=== PATIENT | female | born 1990 | race Caucasian/White ===

== ENCOUNTER 2017-06-26 11:37 | Emergency (ER) | payer OTHER ==
--- NOTE | 2017-06-26 12:16 | ED Physician Documentation ---
PD HPI HEENT - Stated complaint Stated Complaint: JAW PAIN - Chief complaint Chief Complaint: Heent - History obtained from History obtained from: Patient - History of Present Illness Timing - onset: Today Timing - duration: Days (1) Timing - details: Abrupt onset, Still present (pain left lower gum, jaw and side of face. Some redness of lower left gum. no prior similar. no histoyr of cold sores. 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 No: Fever, Swollen nodes, Cough Similar symptoms before: Has not had sx before Recently seen: Not recently seen Review of Systems Constitutional: denies: Fever, Chills Ears: denies: Loss of hearing, Ear pain Nose: reports: Congestion Throat: reports: Dental pain / toothache, Oral lesions / sores (redness and some white blisters on gumline). denies: Sore throat Respiratory: denies: Dyspnea, Cough PD PAST MEDICAL HISTORY - Past Medical History Past Medical History: No Respiratory: None Endocrine/Autoimmune: None - Past Surgical History Past Surgical History: Yes General: Cholecystectomy - Present Medications Home Medications: Ambulatory Orders Medication Instructions Recorded Confirmed Chlorhexidine Gluconate [Peridex] 5 ml MM BID #118 ml 06/26/17 Clindamycin HCl [Cleocin HCl] 300 mg PO TID #20 capsule 06/26/17 Ibuprofen [Motrin] 600 mg PO TID #30 tab 06/26/17 - Allergies Allergies/Adverse Reactions: Allergies Allergy/AdvReac Type Severity Reaction Status Date / Time Latex, Natural Rubber AdvReac skin Verified 06/26/17 11:49 irritation cold medication Allergy unknown Uncoded 06/26/17 11:49 topical anesthesia Allergy unknown Uncoded 06/26/17 11:49 - Social History Does the pt smoke?: Yes Smoking Status: Current every day smoker Does the pt drink ETOH?: No Does the pt have substance abuse?: No - Immunizations Immunizations are current?: Yes PD ED PE NORMAL - Vitals Vital signs reviewed: Yes - General General: Alert and oriented X 3, No acute distress, Well developed/nourished - HEENT HEENT: Ears normal, Moist mucous membranes, Dentition benign, Other (left lower gum with redness and tenderness and some white superficial blisters, no ulceration. No sores on lips/antwon border. ) - Neck Neck: Supple, no meningeal sign, No adenopathy - Cardiac Cardiac: No murmur - Respiratory Respiratory: Clear bilaterally Results - Vitals Vitals: Vital Signs - 24 hr 06/26/17 11:45 Temperature 36.4 C L Heart Rate 69 Respiratory 18 Rate Blood Pressure 109/73 O2 Saturation 100 Oxygen O2 Source Room air Departure - Departure Disposition: Home, Self Care Clinical Impression: Gingivitis Condition: Stable Record reviewed to determine appropriate education?: Yes Instructions: Gingivitis Follow-Up: [facility] [Provider Group] Prescriptions: Chlorhexidine Gluconate [Peridex] 5 ml MM BID #118 ml Clindamycin HCl [Cleocin HCl] 300 mg PO TID #20 capsule Ibuprofen [Motrin] 600 mg PO TID #30 tab Comments: Use antiseptic mouth rinse through that area 3 or 4 times a day for the next several days. Ibuprofen 3 times a day for inflammation. Add Tylenol if needed for pain. It looks like a gum infection locally and so we will treated with clindamycin antibiotic. Recheck if it is all not improved over the next few days.
[2017-06-26] MEDS ORDERED: IBUPROFEN 600 MG TABLET PO STA (12:34)
[2017-06-26] MEDS ORDERED: CLINDAMYCIN 150 MG CAPSULE PO STA (12:35)
[2017-06-26] MEDS ORDERED: CLINDAMYCIN 150 MG CAPSULE PO ONE (12:44)
[2017-06-26] MEDS ORDERED: IBUPROFEN 600 MG TABLET PO ONE (12:44)
[2017-06-26 12:45] VITALS: BP 112/75
== END 2017-06-26 12:45 | disposition home or self-care (01) ==
LOC: ED 11:37
DX: K05.10 Chronic gingivitis, plaque induced (principal); F17.200 Nicotine dependence, unspecified, uncomplicated
CPT/HCPCS: 99283; A9270

== ENCOUNTER 2018-03-25 01:20 | Emergency (ER) | payer OTHER ==
[2018-03-25 02:01] LABS: BASOPHILS # (AUTO) 0.1 10^3/uL (0.0-0.1); BASOPHILS % (AUTO) 0.7 %; EOSINOPHILS # (AUTO) 0.2 10^3/uL (0.0-0.7); EOSINOPHILS % (AUTO) 1.4 %; LYMPHOCYTES # (AUTO) 2.3 10^3/uL (1.5-3.5); LYMPHOCYTES % (AUTO) 19.9 %; MEAN CORPUSCULAR HEMOGLOBIN 29.4 pg (27.0-31.0); MEAN CORPUSCULAR HGB CONC 34.8 g/dL (32.0-36.0); MEAN CORPUSCULAR VOLUME 84.5 fL (81.0-99.0); MEAN PLATELET VOLUME 8.2 fL (7.9-10.8); MONOCYTES % (AUTO) 8.3 %; NEUTROPHILS # (AUTO) 8.1 10^3/uL (1.5-6.6); NEUTROPHILS % (AUTO) 69.7 %; PLT - PLATELET COUNT 330 10^3/uL (130-450); RED CELL DISTRIBUTION WIDTH 13.3 % (12.0-15.0); WHITE BLOOD COUNT 11.7 x10^3/uL (4.8-10.8)
--- NOTE | 2018-03-25 02:02 | ED Physician Documentation ---
PD HPI ABD PAIN - Stated complaint Stated Complaint: ABDOMINAL PAIN - Chief complaint Chief Complaint: Abd Pain - History obtained from History obtained from: Patient - History of Present Illness Timing - onset: Enter time (10:00), Yesterday Timing - details: Gradual onset Pain level now: 6 Quality: Pain Location: RUQ, Epigastric Radiation: Other (no radiation) Improved by: Position (sitting up) Worsened by: Position (lying supine) Associated symptoms: Nausea, Vomiting. No: Fever Similar symptoms before: Has not had sx before Recently seen: Not recently seen Review of Systems Constitutional: reports: Reviewed and negative Cardiac: reports: Reviewed and negative Respiratory: reports: Reviewed and negative GI: reports: Abdominal Pain, Nausea, Vomiting. denies: Abdominal Swelling, Constipation, Diarrhea : denies: Dysuria, Frequency, Now EGA Musculoskeletal: denies: Back pain PD PAST MEDICAL HISTORY - Past Medical History Respiratory: None Endocrine/Autoimmune: None - Past Surgical History Past Surgical History: Yes General: Cholecystectomy - Present Medications Home Medications: Ambulatory Orders Medication Instructions Recorded Confirmed Chlorhexidine Gluconate [Peridex] 5 ml MM BID #118 ml 06/26/17 Clindamycin HCl [Cleocin HCl] 300 mg PO TID #20 capsule 06/26/17 Ibuprofen [Motrin] 600 mg PO TID #30 tab 06/26/17 Ondansetron Odt [Zofran] 4 mg TL Q6H PRN #14 tablet 03/25/18 oxyCODONE [Roxicodone] 5 mg PO Q6H PRN #14 tablet 03/25/18 - Allergies Allergies/Adverse Reactions: Allergies Allergy/AdvReac Type Severity Reaction Status Date / Time Latex, Natural Rubber AdvReac skin Verified 03/25/18 01:33 irritation cold medication Allergy unknown Uncoded 03/25/18 01:33 topical anesthesia Allergy unknown Uncoded 03/25/18 01:33 - Social History Does the pt smoke?: No Smoking Status: Former smoker Does the pt drink ETOH?: No Does the pt have substance abuse?: No - Immunizations Immunizations are current?: Yes PD ED PE NORMAL - Vitals Vital signs reviewed: Yes - General General: Alert and oriented X 3, Well developed/nourished, Other (mostly NAD, but intermittently appears to be in mild painful discomfort) - Cardiac Cardiac: RRR, No murmur - Respiratory Respiratory: No respiratory distress, Clear bilaterally - Abdomen Abdomen: Normal bowel sounds, Soft, Non distended, Other (mild RUQ and moderate epigastric tenderness without rebound or guarding) - Back Back: No CVA TTP - Derm Derm: Normal color, Warm and dry, No rash - Extremities Extremities: No edema Results - Vitals Vitals: Vital Signs - 24 hr 03/25/18 03/25/18 03/25/18 01:30 03:48 06:11 Temperature 36.2 C L Heart Rate 88 76 71 Respiratory 18 17 15 Rate Blood Pressure 106/68 115/64 109/67 O2 Saturation 96 100 100 Oxygen O2 Source Room air - Labs Labs: Laboratory Tests 03/25/18 03/25/18 03/25/18 01:40 01:40 01:52 WBC 11.7 H RBC 5.10 Hgb 15.0 Hct 43.1 MCV 84.5 MCH 29.4 MCHC 34.8 RDW 13.3 Plt Count 330 MPV 8.2 Neut # (Auto) 8.1 H Lymph # (Auto) 2.3 Lyon # (Auto) 1.0 Eos # (Auto) 0.2 Baso # (Auto) 0.1 Absolute Nucleated RBC 0.01 Nucleated RBC % 0.0 Sodium Potassium Chloride Carbon Dioxide Anion Gap BUN Creatinine Estimated GFR (MDRD) Glucose Calcium Total Bilirubin AST ALT Alkaline Phosphatase Total Protein Albumin Globulin Albumin/Globulin Ratio Lipase Urine Color YELLOW Urine Clarity CLEAR Urine pH 6.0 Ur Specific [place] >=1.030 H >=1.030 H Urine Protein NEGATIVE Urine Glucose (UA) NEGATIVE Urine Ketones NEGATIVE Urine Occult Blood NEGATIVE Urine Nitrite NEGATIVE Urine Bilirubin NEGATIVE Urine Urobilinogen 0.2 (NORMAL) Ur Leukocyte Esterase NEGATIVE Ur Microscopic Review NOT INDICATED Urine Culture Comments NOT INDICATED Urine HCG, Qual NEGATIVE 03/25/18 01:52 WBC RBC Hgb Hct MCV MCH MCHC RDW Plt Count MPV Neut # (Auto) Lymph # (Auto) Lyon # (Auto) Eos # (Auto) Baso # (Auto) Absolute Nucleated RBC Nucleated RBC % Sodium 139 Potassium 4.0 Chloride 106 Carbon Dioxide 25 Anion Gap 8.0 BUN 13 Creatinine 0.9 Estimated GFR (MDRD) 75 L Glucose 117 H Calcium 9.2 Total Bilirubin 0.7 AST 18 ALT 16 Alkaline Phosphatase 91 Total Protein 8.0 Albumin 4.3 Globulin 3.7 Albumin/Globulin Ratio 1.2 Lipase 27 Urine Color Urine Clarity Urine pH Ur Specific [place] Urine Protein Urine Glucose (UA) Urine Ketones Urine Occult Blood Urine Nitrite Urine Bilirubin Urine Urobilinogen Ur Leukocyte Esterase Ur Microscopic Review Urine Culture Comments Urine HCG, Qual - Rads (name of study) CT A/P Radiology: Prelim report reviewed, See rad report PD MEDICAL DECISION MAKING - ED course Complexity details: reviewed results, re-evaluated patient, considered differential, d/w patient - Sepsis Event Vital Signs: Vital Signs - 24 hr 03/25/18 03/25/18 03/25/18 01:30 03:48 06:11 Temperature 36.2 C L Heart Rate 88 76 71 Respiratory 18 17 15 Rate Blood Pressure 106/68 115/64 109/67 O2 Saturation 96 100 100 Oxygen O2 Source Room air Departure - Departure Disposition: 01 Home, Self Care Clinical Impression: Abdominal pain Condition: Good Instructions: ED Abdominal Pain Unkn Cause Follow-Up: [facility] [Provider Group] Prescriptions: Ondansetron Odt [Zofran] 4 mg TL Q6H PRN #14 tablet PRN Reason: Nausea / Vomiting oxyCODONE [Roxicodone] 5 mg PO Q6H PRN #14 tablet PRN Reason: Pain Discharge Date/Time: 03/25/18 06:12
[2018-03-25 02:04] LABS: BILIRUBIN,URINE NEGATIVE (NEGATIVE); GLUCOSE, URINE (UA) NEGATIVE (NEGATIVE); KETONES,URINE (UA) NEGATIVE (NEGATIVE); LEUKOCYTE ESTERASE, URINE NEGATIVE (NEGATIVE); NITRITE,URINE NEGATIVE (NEGATIVE); OCCULT BLOOD,URINE NEGATIVE (NEGATIVE); PROTEIN,URINE NEGATIVE (NEGATIVE); UROBILINOGEN,URINE 0.2 (NORMAL) E.U./dL (NORMAL)
[2018-03-25 02:06] LABS: CLARITY,URINE CLEAR (CLEAR)
[2018-03-25 02:07] LABS: HCG UR QUAL NEGATIVE
[2018-03-25 02:12] LABS: ALBUMIN 4.3 g/dL (3.2-5.5); ALBUMIN/GLOBULIN RATIO 1.2 (1.0-2.2); BILIRUBIN,TOTAL 0.7 mg/dL (0.2-1.0); CALCIUM 9.2 mg/dL (8.5-10.3); CREATININE 0.9 mg/dL (0.4-1.0)
[2018-03-25] MEDS ORDERED: SODIUM CHLORIDE 0.9% 1,000 ML IV STA (02:30)
[2018-03-25] MEDS ORDERED: ONDANSETRON 4 MG/2 ML VIAL IVP STA ×2 (02:30→04:19)
[2018-03-25] MEDS ORDERED: KETOROLAC 60 MG/2 ML VIAL IVP STA (02:30)
[2018-03-25] MEDS ORDERED: MORPHINE 10 MG/ML VIAL IVP STA (04:18)
[2018-03-25] MEDS ORDERED: MORPHINE 2 MG/ML CARPUJECT IVP STA (04:24)
[2018-03-25] MEDS ORDERED: IOPAMIDOL-300 100 ML VIAL ONE (04:25)
[2018-03-25] MEDS ORDERED: IOPAMIDOL-300 100 ML VIAL IVP ONE (04:43)
--- NOTE | 2018-03-25 05:03 | CT Report ---
Reason: abdominal pain (epigastric and right sided) Procedure Date: 03/25/2018 Accession Number: [id number] / [id number] Procedure: CT - Abdomen/Pelvis W/ CPT Code: FULL RESULT: EXAM: CT ABDOMEN AND PELVIS EXAM DATE: 03/25/2018 04:54 AM. CLINICAL HISTORY: Abdominal pain (epigastric and right sided). COMPARISONS: None. TECHNIQUE: Routine helical CT imaging was performed through the abdomen and pelvis. IV contrast: ISOVUE 300 100mL. Enteric contrast: No. Reconstructions: Coronal and sagittal. In accordance with CT protocol optimization, one or more of the following dose reduction techniques were utilized for this exam: automated exposure control, adjustment of mA and/or KV based on patient size, or use of iterative reconstructive technique. FINDINGS: Lung Bases: Unremarkable. Liver: Possible fatty infiltration. Gallbladder/Bile Ducts: Status post cholecystectomy. Spleen: Normal. Pancreas: Normal. Adrenal Glands: Normal. Kidneys: Normal. No masses or hydronephrosis. Peritoneal Cavity/Bowel: No bowel obstruction seen. No diverticulitis. No free air or free fluid. Moderate stool in the right hemicolon. No lymphadenopathy. Appendix appears normal. Pelvic Organs: IUD in the lower uterine segment. Left ovarian cyst measuring 2.3 cm. Vasculature: No aneurysms or other significant abnormality. Bones: No significant abnormality. Other: None. IMPRESSION: 1. Appendix appears normal. 2. [place] fatty liver. 3. Moderate stool in the right hemicolon. 4. Left ovarian cyst measuring 2.3 cm. 5. IUD in the lower uterine segment. RADIA
[2018-03-25] MEDS ORDERED: oxyCODONE 5 MG TABLET PO STA (06:03)
[2018-03-25 06:12] VITALS: BP 109/67
== END 2018-03-25 06:12 | disposition home or self-care (01) ==
LOC: ED 01:20
DX: R10.13 Epigastric pain (principal); R10.11 Right upper quadrant pain; Z87.891 Personal history of nicotine dependence
CPT/HCPCS: 36415; 74177; 80053; 81003; 81025; 83690; 85025; 96361; 96374; 96375; 96376; 99283; A9270; Q9967; 81001; 87086

== ENCOUNTER 2018-05-08 14:31 | Emergency (ER) | payer OTHER ==
[2018-05-08 14:42] VITALS: BP 112/66
[2018-05-08] MEDS ORDERED: BUFFERED LIDOCAINE 10 ML SYRINGE SUBQ STA (14:47)
[2018-05-08] MEDS ORDERED: TETANUS/DIPHTHERIA/PERTUSSIS 0.5 ML SYRINGE IM ONE (15:32)
--- NOTE | 2018-05-08 15:35 | ED Physician Documentation ---
PD HPI UPPER EXT INJURY - Stated complaint Stated Complaint: RT HAND LAC - Chief complaint Chief Complaint: Laceration - History obtained from History obtained from: Patient, Family - History of Present Illness Location: Right, Hand Type of injury: Laceration Where injury occurred: Work Timing - onset: Today Timing - duration: Minutes Timing - details: Abrupt onset, Still present Improved by: Rest, Immobilization Worsened by: Moving, Palpating Associated symptoms: No: Weakness, Numbness, Tingling, Swelling Contributing factors: No: Anticoagulated Similar symptoms before: Diagnosis (laceration) Recently seen: Not recently seen - Additonal information Additional information: Previously well 27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 She is not up-to-date on her tetanus she has been able to control the bleeding with direct pressure. Review of Systems Constitutional: denies: Fever, Chills Eyes: denies: Decreased vision Respiratory: denies: Cough GI: denies: Vomiting Skin: reports: Laceration (s). denies: Rash Musculoskeletal: reports: Extremity pain. denies: Neck pain, Back pain Neurologic: denies: Generalized weakness, Focal weakness, Numbness PD PAST MEDICAL HISTORY - Past Medical History Past Medical History: No Respiratory: None Endocrine/Autoimmune: None - Past Surgical History Past Surgical History: Yes General: Cholecystectomy - Present Medications Home Medications: Ambulatory Orders Medication Instructions Recorded Confirmed Omeprazole 20 mg PO 05/08/18 - Allergies Allergies/Adverse Reactions: Allergies Allergy/AdvReac Type Severity Reaction Status Date / Time Latex, Natural Rubber AdvReac skin Verified 05/08/18 14:38 irritation cold medication Allergy unknown Uncoded 05/08/18 14:38 topical anesthesia Allergy unknown Uncoded 05/08/18 14:38 - Social History Does the pt smoke?: No Smoking Status: Never smoker Does the pt drink ETOH?: No Does the pt have substance abuse?: No - Immunizations Immunizations are current?: Yes PD ED PE NORMAL - Vitals Vital signs reviewed: Yes (normal ) - General General: Alert and oriented X 3, No acute distress, Well developed/nourished - HEENT HEENT: Atraumatic, PERRL - Respiratory Respiratory: No respiratory distress - Derm Derm: Normal color, Warm and dry, No rash - Extremities Extremities: No deformity, No edema, Other (There is a 3cm laceration over the web space between the 1st and 2nd digits on the right hand. The wound is deep but does not involve deeper structures. The distal n/v is intact. 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, No motor deficit, No sensory deficit, Normal speech Eye Opening: Spontaneous Motor: Obeys Commands Verbal: Oriented GCS Score: 15 - Psych Psych: Normal mood, Normal affect Results - Vitals Vitals: Vital Signs - 24 hr 05/08/18 14:36 Temperature 36.4 C L Heart Rate 85 Respiratory 18 Rate Blood Pressure 112/66 O2 Saturation 98 Oxygen O2 Source Room air Procedures - Laceration (location) right hand Length in cm: 3 Wound type: Linear, Irregular, Clean Neurovascular status: Sensory intact, Motor intact, Vascular intact Anesthesia: Lidocaine 1%, With bicarb Wound Preparation: Hibiclens, Irrigated copiously NS, Wound explored, To the base Skin layer closure: Nylon, Interrupted, Size #-0 - enter number (4-0) Other: Patient tolerated well, No complications, Neurovascular intact, Dressing applied, Tetanus booster given Complexity: Simple PD MEDICAL DECISION MAKING - ED course Complexity details: considered differential, d/w patient, d/w family ED course: 27-year-old female with a 3 cm right hand laceration is sutured tolerates this well. Departure - Departure Disposition: 01 Home, Self Care Clinical Impression: Hand laceration Qualifiers: Encounter type: initial encounter Foreign body presence: without foreign body Laterality: right Qualified Code(s): S61.411A - Laceration without foreign body of right hand, initial encounter Condition: Stable Instructions: ED Laceration Hand Follow-Up: [facility] [Provider Group] Comments: sutures will need to be removed in 10 days. Forms: Activity restrictions
[2018-05-08] MEDS ORDERED: BACITRACIN OINT TOP ONE (15:39)
== END 2018-05-08 15:55 | disposition home or self-care (01) ==
LOC: ED 14:31
DX: S61.411A Laceration without foreign body of right hand, initial encounter (principal); W25.XXXA Contact with sharp glass, initial encounter; Y93.G1 Activity, food preparation and clean up; Y92.009 Unspecified place in unspecified non-institutional (private) residence as the place of occurrence of the external cause; Y99.0 Civilian activity done for income or pay; Z23 Encounter for immunization
CPT/HCPCS: 1040M; 12002; 90471; 90715; 99282; 99283; A9270

== ENCOUNTER 2024-04-05 19:08 | Emergency (ER) | payer OTHER ==
--- NOTE | 2024-04-05 19:37 | ED Physician Documentation ---
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 No other injuries.) PD PAST MEDICAL HISTORY - Past Medical History Respiratory: None Endocrine/Autoimmune: None - Past Surgical History Past Surgical History: Yes General: Cholecystectomy - Present Medications Home Medications: Ambulatory Orders Medication Instructions Recorded Confirmed Omeprazole 20 mg PO 05/08/18 - Allergies Allergies/Adverse Reactions: Allergies Allergy/AdvReac Type Severity Reaction Status Date / Time Latex, Natural Rubber AdvReac skin Verified 04/05/24 19:57 irritation cold medication Allergy unknown Uncoded 04/05/24 19:57 topical anesthesia Allergy unknown Uncoded 04/05/24 19:57 - Social History Does the pt smoke?: No Smoking Status: Never smoker Does the pt drink ETOH?: No Does the pt have substance abuse?: No - Immunizations Immunizations are current?: Yes PD ED PE NORMAL - Vitals Vital signs reviewed: Yes - General General: Alert and oriented X 3, No acute distress - Extremities Extremities: Other (Very tender to the fifth metacarpal of the left hand. Normal neurovascular function at the tips of all digits.) - Neuro Neuro: Alert and oriented X 3, Normal speech Results - Vitals Vitals: Vital Signs - 24 hr 04/05/24 04/05/24 19:34 22:09 Temperature 36.3 C L 36.4 C L Heart Rate 113 H 97 Respiratory 18 18 Rate Blood Pressure 129/89 H 123/80 O2 Saturation 99 98 Oxygen O2 Source Room air - Rads (name of study) Three-view x-ray left hand negative Relevant Findings:: Final report received, EMP independent interpretation of test PD Medical Decision Making - ED course ED course: She is negative radiography but in a lot of pain. I checked the ligaments on both sides of the MCP of the fifth digit and they seemed intact. That said she was encouraged to follow-up with hand surgery if not improved in a week. Departure - Departure Disposition: 01 Home, Self Care Clinical Impression: Sprain of left little finger Qualifiers: Encounter type: initial encounter Sprain of finger site: metacarpophalangeal joint Qualified Code(s): S63.657A - Sprain of metacarpophalangeal joint of left little finger, initial encounter Condition: Good Record reviewed to determine appropriate education?: Yes Instructions: ED Sprain Finger Comments: If not improved over the next week or so. You should follow-up with a hand surgeon. [address] Colin Fan at [facility], the phone number is [phone]. You may need a referral from your primary care physician if you do need to follow-up with him so you should bring them into the loop 2. Ibuprofen as needed for pain and you can ice it as well. Return for new or worsening symptoms. Forms: PCP List, Activity restrictions Discharge Date/Time: 04/05/24 22:14
[2024-04-05] MEDS: HYDROcod/ACETAM 5/325 MG TABLET PO STA ×2 (20:41→22:06)
[2024-04-05] MEDS: IBUPROFEN 800 MG TABLET PO STA (20:41)
--- NOTE | 2024-04-05 22:14 | XRAY Report ---
PROCEDURE: Hand 3+V LT INDICATIONS: hand inj TECHNIQUE: 3 views of the hand(s) acquired. COMPARISON: None. FINDINGS: Bones: No fractures or dislocations. No suspicious bony lesions. Soft tissues: No suspicious soft tissue calcifications or masses. IMPRESSION: No acute left hand fracture or dislocation. Reviewed by: Cole Cheng MD on 04/05/2024 10:13 PM PDT Approved by: Cole Cheng MD on 04/05/2024 10:13 PM PDT Station ID: [id number]
[2024-04-05 22:15] VITALS: BP 123/80; O2SAT 98
== END 2024-04-05 22:14 | disposition home or self-care (01) ==
LOC: ED 19:08
DX: S63.637A Sprain of interphalangeal joint of left little finger, initial encounter (principal); W20.8XXA Other cause of strike by thrown, projected or falling object, initial encounter
CPT/HCPCS: 73130; 99283; A9270